=== PATIENT | male | born 1940 | race Caucasian/White ===

== ENCOUNTER 2025-10-06 21:04 | Inpatient (IN) | payer OTHER, MEDICARE ==
[~2025-10-06] VITALS: Ht 167.6 cm; Wt 76.3 kg
[2025-10-06 21:17] VITALS: O2SAT 98
[2025-10-06 21:47] LABS: HEMATOCRIT. 43.5 % (42.0-52.0); HEMOGLOBIN. 14.0 g/dL (14.0-18.0); MEAN PLATELET VOLUME 9.3 fl (7.4-10.4); PLATELET 106 x1000/uL (130-400); RED BLOOD CELL COUNT 4.67 mill/uL (4.7-6.1); RED CELL DISTRIBUTION WIDTH 13.5 % (11.6-14.6)
[2025-10-06] MEDS ORDERED: MANNITOL 12.5G (25%) VIAL 50ML IV ONE ×2 (22:00→22:15)
[2025-10-06 22:01] LABS: CREATININE 1.0 mg/dL (0.6-1.3); TROPONIN I HIGH SENSITIVITY 4 ng/L (3.0-53); UREA NITROGEN BLOOD 16 mg/dL (9-23)
[2025-10-06 22:05] LABS: LYMPHOCYTES % MANUAL 7.0 % (20.0-50.0); MONOCYTES % MANUAL 6.0 % (2.0-8.0); NEUTROPHILS % MANUAL 87.0 % (45.0-75.0); PLATELET ESTIMATE DECREASED
[2025-10-06] MEDS: MORPHINE SULFATE 2 MG/ML INJ (NOT FOR IM USE) IV ONE (22:49)
[2025-10-06] MEDS: DEXAMETHASONE 10 MG/ML VIAL IV ONE (22:50)
[2025-10-06] MEDS: LEVETIRACETAM 500MG PREMIX 100 ML IV ONE (22:53)
[2025-10-06] MEDS: NICARDIPINE 40MG/200ML PREMIX 200 ML IV PRN (22:53)
[2025-10-06] MEDS: MANNITOL 20% 100 ML IV NR (23:19)
[2025-10-06] MEDS ORDERED: IPRATROPIUM/ALBUTEROL 0.5-3(2.5)MG/3ML NEB HHN PRN (23:45)
[2025-10-07] VITALS (83 sets, daily range): BP systolic 94–139; BP diastolic 57–94; PULSE 72–99; RESP 14–30; TEMP 36.1–37.1; O2SAT 94–100
[2025-10-07 00:20] LABS: PHOSPHORUS 3.7 mg/dL (2.5-4.9)
[2025-10-07 01:41] LABS: CLARITY URINE CLEAR (CLEAR); COLOR URINE YELLOW (YELLOW); GLUCOSE URINE TRACE (NEGATIVE); KETONES URINE 2+ (NEGATIVE); LEUKOCYTE ESTERASE URINE NEGATIVE (NEGATIVE); NITRITE URINE NEGATIVE (NEGATIVE); OCCULT BLOOD URINE NEGATIVE (NEGATIVE); PH URINE 7.5 (4.5-8.0); PROTEIN URINE NEGATIVE (NEGATIVE); SPECIFIC GRAVITY URINE 1.017 (1.005-1.030); UROBILINOGEN URINE 0.2 E.U./dL (0.2-1.0)
[2025-10-07 01:54] LABS: *AMPHETAMINES SCREEN URINE NEGATIVE (NEGATIVE); *BARBITURATES SCREEN URINE NEGATIVE (NEGATIVE); *BENZODIAZEPINES SCREEN URINE NEGATIVE (NEGATIVE); *COCAINE SCREEN URINE NEGATIVE (NEGATIVE); CANNABINOID URINE SCREEN NEGATIVE (NEGATIVE); ECSTASY MDMA SCREEN URINE NEGATIVE (NEGATIVE); METHADONE URINE SCREEN NEGATIVE (NEGATIVE); OPIATES URINE SCREEN NEGATIVE (NEGATIVE); PHENCYCLIDINE URINE SCREEN NEGATIVE (NEGATIVE)
[2025-10-07 02:01] LABS: BACTERIA URINE RARE; RBC URINE NONE SEEN /hpf (0-2); SQUAMOUS EPITHELIAL CELL URINE RARE /lpf (RARE/1+); WBC URINE 0-2 /hpf (0-2)
[2025-10-07] MEDS ORDERED: LISI10TA26 PO (03:27)
[2025-10-07] MEDS ORDERED: [UNRECOGNIZED DRUG - CODE] PO (03:27)
[2025-10-07] MEDS ORDERED: ATOR20TA65 PO (03:27)
[2025-10-07] MEDS ORDERED: LEVO112T7 PO (03:27)
[2025-10-07] MEDS ORDERED: DEXAMETHASONE 10 MG/ML VIAL IV SCH (06:00)
[2025-10-07 06:04] LABS: HEMATOCRIT. 43.9 % (42.0-52.0); HEMOGLOBIN. 14.5 g/dL (14.0-18.0); MEAN PLATELET VOLUME 10.3 fl (7.4-10.4); PLATELET 121 x1000/uL (130-400); RED BLOOD CELL COUNT 4.79 mill/uL (4.7-6.1); RED CELL DISTRIBUTION WIDTH 13.5 % (11.6-14.6)
[2025-10-07 06:21] LABS: CREATININE 0.9 mg/dL (0.6-1.3)
[2025-10-07 06:22] LABS: LDL CHOLESTEROL 119 mg/dL (5-100); PROTEIN TOTAL 7.0 g/dL (6.0-8.3); TRIGLYCERIDE 34 mg/dL (0-150); UREA NITROGEN BLOOD 16 mg/dL (9-23)
[2025-10-07 06:23] LABS: ASPARTATE AMINOTRANSFERASE 30 IU/L (<34)
[2025-10-07 06:24] LABS: BILIRUBIN DIRECT 0.2 mg/dL (<=3.0); BILIRUBIN TOTAL 0.6 mg/dL (0.1-1.0)
[2025-10-07 06:25] LABS: T4 FREE 1.02 ng/dL (0.89-1.76)
[2025-10-07 06:26] LABS: VITAMIN B12 SERUM 315 pg/mL (211-911)
[2025-10-07 06:27] LABS: FOLIC ACID (FOLATE) SERUM 13.65 ng/mL (>5.38)
[2025-10-07] MEDS: DEXAMETHASONE 4MG/ML 1ML VIAL IV SCH (06:28)
[2025-10-07] MEDS: DEXT 5%/LACTATED RINGERS 1,000 ML IV SCH (06:28)
[2025-10-07] MEDS: LEVOTHYROXINE SODIUM 100 MCG/ VIAL IV SCH (06:29)
[2025-10-07] MEDS: NICARDIPINE 100 MG in SODIUM CHLORIDE 0.9% 60 ML IV PRN (06:29)
[2025-10-07 06:58] LABS: HEPATITIS C AB NON REACTIVE (Neg) (Negative)
[2025-10-07] MEDS: ONDANSETRON HCL 4MG/2ML INJ IV PRN (08:18)
[2025-10-07] MEDS: PANTOPRAZOLE SODIUM 40 MG/VIAL IV SCH (08:35)
[2025-10-07] MEDS: LEVETIRACETAM 500MG PREMIX 100 ML IV SCH (08:36)
[2025-10-07] MEDS: KCL 20MEQ/100ML PREMIX 100 ML IV ONE (08:37)
[2025-10-07] MEDS ORDERED: LEVETIRACETAM 500MG PREMIX 100 ML IV SCH (09:00)
[2025-10-07 12:24] LABS: TROPONIN I HIGH SENSITIVITY 6 ng/L (3.0-53)
[2025-10-07 12:59] LABS: INR 1.0
[2025-10-07 23:14] LABS: BAND% 5.0 % (1.0-6.0); LYMPHOCYTES % MANUAL 4.0 % (20.0-50.0); MONOCYTES % MANUAL 3.0 % (2.0-8.0); NEUTROPHILS % MANUAL 88.0 % (45.0-75.0); PLATELET ESTIMATE SLIGHTLY DECREASED
[2025-10-08] VITALS (84 sets, daily range): BP systolic 101–146; BP diastolic 51–115; PULSE 58–82; RESP 10–22; TEMP 36.6–37; O2SAT 92–98
[2025-10-08 05:53] LABS: HEMATOCRIT. 39.6 % (42.0-52.0); HEMOGLOBIN. 13.2 g/dL (14.0-18.0); MEAN PLATELET VOLUME 9.8 fl (7.4-10.4); PLATELET 116 x1000/uL (130-400); RED BLOOD CELL COUNT 4.32 mill/uL (4.7-6.1); RED CELL DISTRIBUTION WIDTH 13.6 % (11.6-14.6)
[2025-10-08 06:35] LABS: CREATININE 0.9 mg/dL (0.6-1.3)
[2025-10-08 06:37] LABS: UREA NITROGEN BLOOD 15 mg/dL (9-23)
[2025-10-08 14:16] LABS: BAND% 5.0 % (1.0-6.0); LYMPHOCYTES % MANUAL 1.0 % (20.0-50.0); NEUTROPHILS % MANUAL 94.0 % (45.0-75.0); PLATELET ESTIMATE SLIGHTLY DECREASED
[2025-10-09] VITALS (82 sets, daily range): BP systolic 116–166; BP diastolic 55–134; PULSE 51–83; RESP 12–21; TEMP 36.6–37.1; O2SAT 97–99
[2025-10-09 06:15] LABS: HEMATOCRIT. 40.8 % (42.0-52.0); HEMOGLOBIN. 13.6 g/dL (14.0-18.0); MEAN PLATELET VOLUME 10.2 fl (7.4-10.4); PLATELET 103 x1000/uL (130-400); RED BLOOD CELL COUNT 4.43 mill/uL (4.7-6.1); RED CELL DISTRIBUTION WIDTH 13.6 % (11.6-14.6)
[2025-10-09 06:29] LABS: CREATININE 0.8 mg/dL (0.6-1.3); UREA NITROGEN BLOOD 15 mg/dL (9-23)
[2025-10-09 11:07] LABS: BAND% 8.0 % (1.0-6.0); LYMPHOCYTES % MANUAL 6.0 % (20.0-50.0); MONOCYTES % MANUAL 7.0 % (2.0-8.0); NEUTROPHILS % MANUAL 79.0 % (45.0-75.0)
[2025-10-09 11:13] LABS: PLATELET ESTIMATE DECREASED
[2025-10-10] VITALS (79 sets, daily range): BP systolic 98–156; BP diastolic 50–100; PULSE 49–88; RESP 11–28; TEMP 36.6–36.8; O2SAT 98–100
[2025-10-10] MEDS: LEVOTHYROXINE SODIUM 100 MCG/ VIAL IV SCH (06:34)
[2025-10-10] MEDS: ACETAMINOPHEN 325MG TABLET PO PRN (17:31)
[2025-10-10] MEDS: AMLODIPINE 5MG TABLET PO SCH (21:14)
[2025-10-10] MEDS: ATORVASTATIN CALCIUM 20MG TABLET PO SCH (21:14)
[2025-10-11] VITALS (12 sets, daily range): BP systolic 127–147; BP diastolic 64–92; PULSE 63–77; RESP 14–20; TEMP 36.6–37.1; O2SAT 97–100
[2025-10-11 07:19] LABS: CREATININE 0.7 mg/dL (0.6-1.3); UREA NITROGEN BLOOD 15 mg/dL (9-23)
[2025-10-11 07:29] LABS: HEMATOCRIT. 43.0 % (42.0-52.0); HEMOGLOBIN. 14.3 g/dL (14.0-18.0); MEAN PLATELET VOLUME 9.9 fl (7.4-10.4); PLATELET 101 x1000/uL (130-400); RED BLOOD CELL COUNT 4.74 mill/uL (4.7-6.1); RED CELL DISTRIBUTION WIDTH 13.2 % (11.6-14.6)
[2025-10-11] MEDS: LISINOPRIL 10MG TABLET PO SCH (09:00)
[2025-10-11] MEDS: KCL 20MEQ/100ML PREMIX 100 ML IV SCH (12:41)
[2025-10-11] MEDS: LEVETIRACETAM 500MG PREMIX 100 ML IV SCH (12:56)
[2025-10-11] MEDS ORDERED: DEXTROSE 50% WATER 50ML SYRINGE IV PRN (16:30)
[2025-10-11 16:49] LABS: LYMPHOCYTES % MANUAL 4.0 % (20.0-50.0); MONOCYTES % MANUAL 15.0 % (2.0-8.0); NEUTROPHILS % MANUAL 81.0 % (45.0-75.0); PLATELET ESTIMATE NORMAL
[2025-10-11] MEDS: BLOOD SUGAR DIAGNOSTIC STRIP TEST SCH (18:00)
[2025-10-11] MEDS: LEVETIRACETAM 1000MG PREMIX 100 ML IV SCH (20:27)
[2025-10-11] MEDS ORDERED: LEVETIRACETAM 1,000MG in NACL 100ML PREMIX IV SCH (21:00)
[2025-10-12] VITALS (12 sets, daily range): BP systolic 126–145; BP diastolic 64–78; PULSE 62–75; RESP 13–20; TEMP 36.6–37.6; O2SAT 96–100
[2025-10-12] MEDS ORDERED: KCL 20MEQ/100ML PREMIX 100 ML IV SCH (12:45)
[2025-10-13] VITALS (12 sets, daily range): BP systolic 110–138; BP diastolic 64–90; PULSE 62–100; RESP 15–20; TEMP 36.4–37.6; O2SAT 95–100
[2025-10-13 07:16] LABS: PLATELET 95 x1000/uL (130-400); RED BLOOD CELL COUNT 4.99 mill/uL (4.7-6.1); RED CELL DISTRIBUTION WIDTH 13.5 % (11.6-14.6)
[2025-10-13 07:46] LABS: CREATININE 0.8 mg/dL (0.6-1.3); UREA NITROGEN BLOOD 13 mg/dL (9-23)
[2025-10-13] MEDS: ACETAMINOPHEN 325MG TABLET PO PRN (18:03)
[2025-10-14] VITALS (12 sets, daily range): BP systolic 109–147; BP diastolic 62–77; PULSE 61–93; RESP 15–20; TEMP 36.3–37.5; O2SAT 98–100
[2025-10-14] MEDS ORDERED: CEFEPIME 1GM IN DEXT 5% 50ML IV SCH (00:15)
[2025-10-14] MEDS ORDERED: CEFEPIME 1GM IN DEXT 5% 50ML IV ONE (00:15)
[2025-10-14] MEDS: CEFEPIME 2GM PREMIX 100ML IV SCH (00:32)
[2025-10-14 08:02] LABS: CREATININE 0.7 mg/dL (0.6-1.3)
[2025-10-14 08:04] LABS: UREA NITROGEN BLOOD 14 mg/dL (9-23)
[2025-10-14 08:06] LABS: PHOSPHORUS 2.6 mg/dL (2.5-4.9)
[2025-10-14 08:07] LABS: HEMATOCRIT. 46.9 % (42.0-52.0); HEMOGLOBIN. 15.4 g/dL (14.0-18.0); MEAN PLATELET VOLUME 10.2 fl (7.4-10.4); PLATELET 66 x1000/uL (130-400); RED BLOOD CELL COUNT 5.00 mill/uL (4.7-6.1); RED CELL DISTRIBUTION WIDTH 13.6 % (11.6-14.6)
[2025-10-15] VITALS (12 sets, daily range): BP systolic 125–137; BP diastolic 69–76; PULSE 63–90; RESP 12–24; TEMP 36.4–36.8; O2SAT 95–100
[2025-10-15 04:22] LABS: LYMPHOCYTES % MANUAL 6.0 % (20.0-50.0); MONOCYTES % MANUAL 3.0 % (2.0-8.0); NEUTROPHILS % MANUAL 91.0 % (45.0-75.0); PLATELET ESTIMATE DECREASED
[2025-10-16] VITALS (12 sets, daily range): BP systolic 105–137; BP diastolic 64–87; PULSE 64–85; RESP 12–22; TEMP 36.5–36.8; O2SAT 97–99
[2025-10-16] MEDS: CEFEPIME 2GM PREMIX 100ML IV SCH (13:58)
[2025-10-16] MEDS: LACTULOSE 20G/30ML UDC PO SCH (16:36)
[2025-10-17] VITALS (10 sets, daily range): BP systolic 111–132; BP diastolic 67–78; PULSE 68–84; RESP 13–20; TEMP 36.7–36.8; O2SAT 96–99
[2025-10-17] MEDS: IOHEXOL-350 100 ML BOTTLE ONE (11:11)
== END 2025-10-17 17:35 | DRG 86 ==
LOC: ER 21:04 → MICUSO 22:37 → EDBEDREQ 22:44 → EDBEDREQTM 22:44 → ENRESERV 23:29 → 5EST 10-10 23:59
PROVIDERS: ADMIT Internal Medicine; ATTEND Internal Medicine
DX: S06.5X0A Traumatic subdural hemorrhage without loss of consciousness, initial encounter (principal); G91.9 Hydrocephalus, unspecified; D64.9 Anemia, unspecified; E03.9 Hypothyroidism, unspecified; I10 Essential (primary) hypertension; F32.A Depression, unspecified; D72.829 Elevated white blood cell count, unspecified; M47.812 Spondylosis without myelopathy or radiculopathy, cervical region; M48.02 Spinal stenosis, cervical region; S30.810A Abrasion of lower back and pelvis, initial encounter; E78.00 Pure hypercholesterolemia, unspecified; E87.6 Hypokalemia; Z55.6 Problems related to health literacy; Z79.899 Other long term (current) drug therapy; W18.30XA Fall on same level, unspecified, initial encounter; Y93.89 Activity, other specified; Y92.89 Other specified places as the place of occurrence of the external cause; Y99.8 Other external cause status
CPT/HCPCS: 36415; 70496; 70498; 71045; 73560; 76881; 80048; 80061; 80076; 80305; 81003; 82550; 82607; 82746; 82962; 83036; 83735; 84100; 84145; 84439; 84443; 84484; 85025; 85027; 86705; 87340; 92610; 93970; 96365; 96368; 96375; 97112; 97116; 97162; 97165; 97530; 97535; 99291; A4606; J0692; J1100; J1953; J2151; J2270; J2405; J2470; J3480; J3490; J7121; Q9967